=== PATIENT | female | born 1945 | race Caucasian/White ===

== ENCOUNTER 2018-02-05 13:14 | Emergency (ER) | payer MEDICARE ==
[2018-02-05 15:03] LABS: #Basophils 0.1 thou/uL (0.0-0.2); #Eosinphils 0.3 thou/uL (0.0-0.7); #Lymphocytes 1.7 thou/uL (1.20-3.40); #Monocytes 0.6 thou/uL (0.11-0.59); #Neutrophils 4.8 thou/uL (1.40-6.50); %Basophils 0.7 % (0.0-1.0); %Eosinophils 3.6 % (0.0-10.0); %Monocytes 8.5 % (0.0-10.0); %Neutrophils 64.2 % (42.0-75.0); Hemoglobin 13.3 g/dL (12.0-16.0); Mean Corpuscular HGB CONC 34.1 g/dL (32.0-36.0); Mean Corpuscular Hemoglobin 30.7 pg (27.0-31.0); Mean Platelet Volume 7.3 fL (7.4-10.4); Platelet Count 285 thou/uL (130-400); RBC Distribution Width 11.2 % (11.5-14.5); Red Blood Cell (RBC) Count 4.34 mill/uL (4.20-5.40); White Blood Cell (WBC) Count 7.4 thou/uL (4.8-10.8)
[2018-02-05 15:31] LABS: ALT (SGPT) 9 U/L (8-55); AST (SGOT) 10 U/L (5-34); Alkaline Phosphatase 82 U/L (40-150); Anion Gap 14 mmol/L (10-20); BUN (Urea Nitrogen) 9 mg/dL (9.8-20.1); Bilirubin, Total 0.3 mg/dL (0.2-1.2); Calc. Creatinine Clearance 0 mL/min (70-130); Calcium 9.5 mg/dL (7.8-10.44); Carbon Dioxide 23 mmol/L (23-31); Chloride 103 mmol/L (98-107); Estimated GFR-MDRD 69; Globulin 3.1 g/dL (2.4-3.5); Glucose 92 mg/dL (83-110); Lipase 17 U/L (8-78); Protein, Total 7.1 g/dL (6.0-8.3); Sodium 136 mmol/L (136-145)
[2018-02-05 15:38] LABS: Bilirubin Negative (Negative); Blood, Urine Negative (Negative); Clarity CLEAR (Clear); Glucose, Urine (Dipstick) Negative (Negative); Leukocyte Large (Negative); Nitrite Negative (Negative); Protein, Urine (Dipstick) Negative (Neg-Trace); Specific Gravity, Urine 1.017 (1.002-1.036); Urobilinogen 0.2 mg/dL (0.2-1.0)
[2018-02-05 15:40] LABS: Bacteria/HPF None Seen HPF (None Seen); Hyaline Casts/LPF 0-3 HYALINE CAST LPF (0-3 Hyaline); Pathc Cast-AUWi Flag 0.43 (0-2.49); RBC/HPF 0-3 HPF (0-3); WBC/HPF 21-50 HPF (0-3)
[2018-02-05] MEDS ORDERED: Morphine 4 MG/ML VIAL ONE (16:18)
--- NOTE | 2018-02-05 16:33 | CT ---
CT ABDOMEN AND PELVIS WITH IV CONTRAST: History: Abdominal pain. Comparison: 10-07-16 FINDINGS: The lung bases are clear. Calcified granulomata within the spleen are consistent with healed granulom atous disease. Prominent arterial calcification with fusiform ectasia of the lower abdominal aorta th at is similar in appearance to the previous exam. 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 Numerous diverticula arise from the colon without adjacent inflammation on today's exam. No free flui d. Nonspecific lymph nodes scattered throughout the abdomen and pelvis. Left hip prosthesis obscures detail. IMPRESSION: 1. Diverticulosis. No evidence of inflammation on today's CT. 2. Atherosclerosis. Chronic type findings are stable. POS: [facility]
== END 2018-02-05 17:20 | disposition home or self-care (01) ==
LOC: ERS 13:14
DX: K57.92 Diverticulitis of intestine, part unspecified, without perforation or abscess without bleeding (principal); E78.5 Hyperlipidemia, unspecified; F41.9 Anxiety disorder, unspecified; F17.210 Nicotine dependence, cigarettes, uncomplicated; Z79.899 Other long term (current) drug therapy
CPT/HCPCS: 36415; 74177; 80053; 81003; 81015; 83690; 85025; 96361; 96374; J2270

== ENCOUNTER 2018-05-24 19:24 | Observation (INO) | payer MEDICARE ==
[2018-05-24 19:48] LABS: #Basophils 0.1 thou/uL (0.0-0.2); #Eosinphils 0.4 thou/uL (0.0-0.7); #Lymphocytes 2.5 thou/uL (1.20-3.40); #Monocytes 0.8 thou/uL (0.11-0.59); #Neutrophils 6.5 thou/uL (1.40-6.50); %Basophils 0.7 % (0.0-1.0); %Eosinophils 3.6 % (0.0-10.0); %Lymphocytes 24.6 % (21.0-51.0); %Monocytes 7.6 % (0.0-10.0); %Neutrophils 63.5 % (42.0-75.0); Hemoglobin 15.5 g/dL (12.0-16.0); Mean Corpuscular HGB CONC 35.4 g/dL (32.0-36.0); Mean Corpuscular Hemoglobin 31.7 pg (27.0-31.0); Mean Corpuscular Volume 89.7 fL (78.0-98.0); Mean Platelet Volume 7.4 fL (7.4-10.4); Platelet Count 359 thou/uL (130-400); RBC Distribution Width 11.4 % (11.5-14.5); Red Blood Cell (RBC) Count 4.89 mill/uL (4.20-5.40); White Blood Cell (WBC) Count 10.2 thou/uL (4.8-10.8)
[2018-05-24 19:55] LABS: INR-International Normal Ratio 0.9; Prothrombin Time 11.7 SEC (12.0-14.7)
--- NOTE | 2018-05-24 19:58 | CT ---
FCT head without contrast: Multiple axial tomograms obtained through the head without IV enhancement. INDICATIONS: Stroke protocol. Right arm numbness. COMPARISON: 07/09/2016 FINDINGS: Ventricles have normal size and position. No evidence of intracranial mass, hemorrhage, edema, or infarct. Visualized sinuses and mastoids appear clear. Bony calvarium appears unremarkable. IMPRESSION: No acute finding Findings relayed to ER physician at 7:55 PM
[2018-05-24 20:00] LABS: ALT (SGPT) 8 U/L (8-55); AST (SGOT) 14 U/L (5-34); Albumin 4.7 g/dL (3.4-4.8); Alkaline Phosphatase 98 U/L (40-150); Anion Gap 16 mmol/L (10-20); BUN (Urea Nitrogen) 14 mg/dL (9.8-20.1); Bilirubin, Total 0.2 mg/dL (0.2-1.2); CK (CPK) 53 U/L (29-168); Calc. Creatinine Clearance 0 mL/min (70-130); Carbon Dioxide 28 mmol/L (23-31); Chloride 100 mmol/L (98-107); Estimated GFR-MDRD 49; Globulin 3.7 g/dL (2.4-3.5); Glucose 98 mg/dL (83-110); Potassium 3.9 mmol/L (3.5-5.1); Protein, Total 8.4 g/dL (6.0-8.3); Sodium 140 mmol/L (136-145)
[2018-05-24] MEDS ORDERED: Acetaminophen 325 MG TAB PO PRN (21:54)
[2018-05-24] MEDS ORDERED: HYDROcodone/Acetaminophen 5/325 mg Tablet PO PRN (21:54)
[2018-05-24] MEDS ORDERED: Senokot S 8.6-50 MG TAB PO PRN (21:54)
[2018-05-24 22:24] VITALS: BMI 28.3
[2018-05-24] MEDS ORDERED: Amitriptyline HCl 25 MG TAB PO PRN (22:37)
[2018-05-24 23:04] LABS: Troponin I Less than 0.010 ng/mL (< 0.028)
[2018-05-24 23:56] LABS: Bilirubin Negative (Negative); Blood, Urine Negative (Negative); Clarity CLEAR (Clear); Glucose, Urine (Dipstick) Negative (Negative); Leukocyte Moderate (Negative); Nitrite Negative (Negative); Protein, Urine (Dipstick) Negative (Neg-Trace); Specific Gravity, Urine 1.017 (1.002-1.036); Urobilinogen 0.2 mg/dL (0.2-1.0); pH, Urine 6.5 (5.0-9.0)
[2018-05-24 23:58] LABS: Bacteria/HPF None Seen HPF (None Seen); Hyaline Casts/LPF 4-6 HYALINE CAST LPF (0-3 Hyaline); RBC/HPF 0-3 HPF (0-3); Squamous Epithelial 0-3 HPF (0-3); WBC/HPF 21-50 HPF (0-3)
[2018-05-25 00:03] LABS: Amphetamine Not Detected (NotDetected); Barbiturates Screen Not Detected (NotDetected); Benzodiazepine Screen Detected (NotDetected); Cocaine Metabolite Screen Not Detected (NotDetected); Medtox Control Line Valid? VALID (VALID); Medtox Reader # READER 1; Methadone Not Detected (NotDetected); Methamphetamine Not Detected (NotDetected); Opiate Screen Not Detected (NotDetected); Oxycodone Screen Not Detected (NotDetected); Phencyclidine (PCP) Not Detected (NotDetected); THC/Cannabinoid Screen Not Detected (NotDetected); Tricyclic Screen Detected (NotDetected)
[2018-05-25 02:11] LABS: Troponin I Less than 0.010 ng/mL (< 0.028)
[2018-05-25 05:12] LABS: #Basophils 0.1 thou/uL (0.0-0.2); #Eosinphils 0.4 thou/uL (0.0-0.7); #Lymphocytes 2.7 thou/uL (1.20-3.40); #Monocytes 0.7 thou/uL (0.11-0.59); #Neutrophils 4.4 thou/uL (1.40-6.50); %Basophils 0.7 % (0.0-1.0); %Eosinophils 5.1 % (0.0-10.0); %Lymphocytes 32.4 % (21.0-51.0); %Monocytes 8.1 % (0.0-10.0); %Neutrophils 53.7 % (42.0-75.0); Hemoglobin 13.2 g/dL (12.0-16.0); Mean Corpuscular HGB CONC 34.3 g/dL (32.0-36.0); Mean Corpuscular Hemoglobin 30.9 pg (27.0-31.0); Mean Corpuscular Volume 90.1 fL (78.0-98.0); Mean Platelet Volume 7.3 fL (7.4-10.4); Platelet Count 272 thou/uL (130-400); RBC Distribution Width 11.5 % (11.5-14.5); Red Blood Cell (RBC) Count 4.26 mill/uL (4.20-5.40); White Blood Cell (WBC) Count 8.2 thou/uL (4.8-10.8)
[2018-05-25 05:29] LABS: ALT (SGPT) 8 U/L (8-55); AST (SGOT) 9 U/L (5-34); Alkaline Phosphatase 72 U/L (40-150); Anion Gap 12 mmol/L (10-20); BUN (Urea Nitrogen) 12 mg/dL (9.8-20.1); Bilirubin, Total 0.3 mg/dL (0.2-1.2); Calc. Creatinine Clearance 71 mL/min (70-130); Calcium 9.4 mg/dL (7.8-10.44); Carbon Dioxide 26 mmol/L (23-31); Cardiac Risk 4.8 (Less than 4.5); Chloride 104 mmol/L (98-107); Cholesterol 213 mg/dl (< 200 Desired); Estimated GFR-MDRD 67; Globulin 2.6 g/dL (2.4-3.5); Glucose 97 mg/dL (83-110); HDL Cholesterol 44 mg/dL (>60 Neg Risk); LDL Cholesterol, Calculated 92 mg/dL; Potassium 3.9 mmol/L (3.5-5.1); Protein, Total 6.6 g/dL (6.0-8.3); Sodium 138 mmol/L (136-145); Triglycerides 387 mg/dL (Less than 150)
--- NOTE | 2018-05-25 07:03 | HP ---
PRIMARY CARE PHYSICIAN: Dr. Alvarez. CHIEF COMPLAINT: Expressive dysphasia. HISTORY OF PRESENT ILLNESS: Ms. Sexton is a 72-year-old female who came to the emergency room today for evaluation of 30-minute episode of inability to speak. Reports right-sided weakness and numbness in her right arm. Symptoms have mostly resolved at this point. Does report a similar episode on of last week, which lasted about 15 minutes and resolved. The patient reports that speech dysarthria has resolved. Has 4/5 strength, right arm, right leg. Denied any trouble swallowing. Past medical history is pertinent for hyperlipidemia and is a cigarette smoker. Reports smokes about a pack a day and has for the last [address] of the brain was obtained while in the emergency room and has no acute findings. The patient does also have a history of stable of the right carotid terminus, first noticed in 2014, and follows with Neurosurgery periodically. Based on history and symptoms, the patient will be admitted to the stroke unit for further management. PAST MEDICAL HISTORY: History of diverticulosis, diverticulitis, hypertension, dyslipidemia, history of bacterial meningitis. PAST SURGICAL HISTORY: Bilateral lumpectomy, appendectomy, hysterectomy, and left hip replacement. PSYCHIATRIC HISTORY: Anxiety and depression. SOCIAL HISTORY: The patient lives at home. Smokes one pack per day and has since the age of 24. . Denies history of any illicit drug use. Does drink alcohol socially. FAMILY HISTORY: No family history of any premature coronary artery disease, stroke, or cancer. ALLERGIES: HOME MEDICATIONS: 1. Simvastatin 1 tablet p.o. 40 mg. 2. Paroxetine 40 mg p.o. at bedtime. 3. Lorazepam 1 mg p.o. daily. 4. Elavil 25 mg p.o. at bedtime as needed. REVIEW OF SYSTEMS: The patient does report an episode of about 30 minutes where she had trouble speaking, had some right-sided weakness and numbness. Denied any trouble swallowing. The patient and report that speech is back to normal. Does report some dizziness, focal weakness to the right side. Denies any abdominal pain, nausea, vomiting, diarrhea, fever, chills. All other systems reviewed and are negative unless mentioned in the HPI. PHYSICAL EXAMINATION: VITAL SIGNS: Blood pressure 142/81, pulse is 88, respirations 15, pulse ox is 96% on room air, temperature is 98.7. CONSTITUTIONAL: The patient is nontoxic appearing, is alert and oriented to person, place, and time. HEENT: Normocephalic, atraumatic. Eyes: Eyelids are normal to inspection. Pupils equally round and reactive to light. ENT: Mouth exam is normal. Trachea is midline. RESPIRATORY/CHEST: Breath sounds are clear. CARDIOVASCULAR: Regular rate and rhythm. Heart sounds are normal. ABDOMEN: Nontender. Bowel sounds are heard. EXTREMITIES: Upper extremity range of motion is normal. Motor strength is 5/5 on the left, 4/5 on the right. Sensation is decreased to right arm. Lower extremity range of motion is normal, 5/5 on the left, 4/5 on the right. Sensation is decreased. Pedal pulses are equal bilaterally. NEUROLOGIC: The patient is alert and oriented to person, place, and time. Speech is normal. Pronator drift on the right. Weakness to the right arm. Decreased sensation on the right arm. Weakness 4/5 motor strength on the right leg. SKIN: Warm, dry, normal in color. PSYCH: The patient has a normal affect. DIAGNOSTIC STUDIES: EKG in the ER shows beats per minute 89 with a normal sinus rhythm. ST segments and T waves are normal. [place] is normal. PERTINENT LABORATORY DATA: White blood cell count is 10.2, hemoglobin is 15.5, hematocrit is 43.9, platelet count is 359. Coags: PT is 11.7, INR is 0.9, APTT 25. Sodium 140, potassium 3.9, chloride 100, gap is 16, BUN is 14, creatinine is 1.10, estimated GFR is 49, glucose is 98, calcium is 10. Troponin x2 are undetectable. Liver enzymes are unremarkable. Urine is positive for leukocyte esterase, white blood cell count 21-50, hyaline casts 46. Urine cultures have been ordered. Toxicology, tricyclic and benzodiazepine. ASSESSMENT AND PLAN: 1. Right-sided weakness. CT scan of the head with no acute findings. We will obtain an MRI of the brain without contrast, echocardiogram. A CTA of the head and neck will be ordered. Aspirin has been given in the ER. We will continue that daily. Lipids will be checked in the a.m. Stroke team to evaluate including PT, OT, and speech. 2. Hyperlipidemia. We will check lipids in the morning. Restart home medication. 3. Anxiety and depression. We will continue home medications. 4. Deep vein thrombosis and gastrointestinal prophylaxis will be started. 5. Hospital course based on clinical findings. Job ID: [id number]
[2018-05-25] MEDS ORDERED: Lorazepam 1 MG TAB PO SCH ×2 (09:00→21:00)
[2018-05-25] MEDS: Enoxaparin Sodium 40 MG/0.4 ML SYRINGE SC SCH (09:26)
[2018-05-25] MEDS: Famotidine 20 MG TAB PO SCH ×2 (09:26→20:17)
--- NOTE | 2018-05-25 11:39 | CT ---
CTA NECK CTA HEAD: CTA HEAD WITH AND WITHOUT CONTRAST: Multiple axial tomograms were obtained through the head without IV enhancement. This was followed by CTA angio of head with multiplanar reconstruction and 3d post processing. INDICATION: Bilateral vision loss. Confusion, aphasia. COMPARISON: Comparison is made to a CTA head dated 07/09/2016. That exam described dolichoectasia of the right ca rotid terminus. FINDINGS: The intracranial internal carotid arteries are patent. 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 Mild ectasia of the left carotid terminus is also stable in appearance. The middle cerebral arteries appear patent and symmetric. M1, M2, and M3 branches appear symmetric. The anterior cerebral arteries are patent. The carotid tip is bulbous and somewhat nodular in appearance. This is a stable finding from the janet or study. 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 The posterior cerebrals appear to h ave a common origin, but this is also a stable finding. There is evidence of a small focus of stenosis in the left P1 segment which appears stable. IMPRESSION: 1. Stable CT angio of cerebral circulation. 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 There is mild ectasia of the left carotid terminus which is stable. 2. Basilar tip is bulbous and nodular but stable from prior exam. 3. Focal stenosis in the P1 segment of the left posterior cerebral artery is seen and this is a stab le finding. CT HEAD WITHOUT CONTRAST: Multiple axial tomograms obtained through the head without IV enhancement prior to the cerebral angio study. FINDINGS: Ventricles have normal size and position. There is no evidence of intracranial mass, hemorrhage, or infarct. IMPRESSION: No acute finding. CTA NECK: Multiple axial tomograms are obtained through the neck with angio protocol. Multiplanar reconstructi on and 3D post processing. INDICATION: Sudden vision loss. FINDINGS: No stenosis seen at the origin of the arch vessels. Common carotid arteries are patent and symmetric. There are mild atherosclerotic changes are seen in both carotid bulbs and proximal ICAs with calcific ation and mild soft plaque. No evidence of internal carotid artery stenosis identified on either ana e. Vertebral arteries are patent. Mildly dominant right vertebral again noted. No soft tissue abnormality. IMPRESSION: Mild atherosclerotic changes seen at both carotid bulbs and proximal internal carotid arteries. No s ignificant stenosis identified. POS: [facility]
--- NOTE | 2018-05-25 13:20 | MRI ---
MRI BRAIN WITHOUT CONTRAST: HISTORY: TIA. FINDINGS: Correlation is made with the previous day's CT scan. No restricted diffusion is seen. No evidence of infarct, hemorrhage, midline shift, or abnormal extr aaxial fluid collections noted. The ventricular size is appropriate and the basilar cisterns patent. Foci of T2 prolongation of the periventricular white matter consistent with mild chronic small-vess el ischemic disease. There is minimal mucosal disease in the paranasal sinuses. IMPRESSION: No evidence of acute intracranial process. POS: [facility]
--- NOTE | 2018-05-25 15:48 | PDOC.PN ---
- Subjective Encounter Start Date: 05/25/18 Encounter Start Time: 15:31 Patient lying in bed with at bedside. She reports returning to baseline. She denies chest pain, shortness of breath, abdominal pain. She reports some mild headache, but denies any weakness, numbness or tingling. MRI showing no acute findings, CTA showing aneurysm stable from 2017. UA showing signs of possible UTI, she did notice some urine odor and suprapubic pain. - Objective Resuscitation Status - Order Detail: 05/24/18 21:54 Resuscitation Status Routine Co-Sign Provider: Resuscitation Status: DNAR: NO Resuscitation Discussed with: Patient Additional comments: Neo is surrogate decision maker [phone] MAR Reviewed: Yes Vital Signs & Weight: Vital Signs (12 hours) Temp Pulse Pulse Pulse Resp BP BP 05/25/18 11:48 97.9 F 88 16 05/25/18 09:55 80 81 136/81 165/75 H 05/25/18 07:44 98.4 F 76 17 05/25/18 04:00 97.8 F 79 16 BP Pulse Ox 05/25/18 11:48 144/84 H 95 05/25/18 09:55 05/25/18 07:44 127/79 94 L 05/25/18 04:00 134/74 92 L Weight Weight 165 lb 1.6 oz I&O: 05/24/18 05/25/18 05/26/18 06:59 06:59 06:59 Intake Total 240 Output Total 240 Balance 0 Result Diagrams: 05/25/18 04:43 05/25/18 04:43 Additional Labs: Accuchecks 05/24/18 19:37 POC Glucose 90 Radiology Reviewed by me: Yes Phys Exam - Physical Examination Constitutional: NAD HEENT: moist MMs Neck: supple Respiratory: no wheezing, no rales Cardiovascular: RRR, no significant murmur Gastrointestinal: soft, no distention, positive bowel sounds Musculoskeletal: no edema, pulses present Neurological: non-focal, moves all 4 limbs Lymphatic: no nodes Psychiatric: normal affect, A&O x 3 Skin: no rash, cap refill <2 seconds Dx/Plan (1) TIA (transient ischemic attack) Status: Acute (2) UTI (urinary tract infection) Status: Acute Qualifiers: Urinary tract infection type: acute cystitis Hematuria presence: without hematuria Qualified Code(s): N30.00 - Acute cystitis without hematuria (3) Anxiety and depression Code(s): F41.8 - OTHER SPECIFIED ANXIETY DISORDERS Status: Chronic - Plan cont current plan of care, plan discussed w/ family, continue antibiotics * Workup so far unremarkable * CTA showing aneurysm stable * UA showing signs of UTI, check urine culture and start ceftriaxone * Await echo * Continue aspirin 81mg daily and home statin * Continue other home medications
[2018-05-25] MEDS ORDERED: cefTRIAXone\\ROCEPHIN 1 GM in Sodium Chloride 0.9% 100 ML IVPB SCH (16:00)
[2018-05-25] MEDS ORDERED: PARoxetine 20 MG TAB PO SCH (21:00)
[2018-05-25] MEDS ORDERED: Simvastatin 40 MG TAB PO SCH (21:00)
[2018-05-26 05:46] LABS: #Eosinphils 0.3 thou/uL (0.0-0.7); #Monocytes 0.6 thou/uL (0.11-0.59); %Basophils 0.5 % (0.0-1.0); %Eosinophils 4.4 % (0.0-10.0); %Lymphocytes 28.2 % (21.0-51.0); %Neutrophils 57.9 % (42.0-75.0); Hemoglobin 13.5 g/dL (12.0-16.0); Mean Corpuscular Hemoglobin 30.2 pg (27.0-31.0); Mean Corpuscular Volume 88.9 fL (78.0-98.0); Mean Platelet Volume 7.4 fL (7.4-10.4); Platelet Count 271 thou/uL (130-400); RBC Distribution Width 11.2 % (11.5-14.5); Red Blood Cell (RBC) Count 4.45 mill/uL (4.20-5.40); White Blood Cell (WBC) Count 6.9 thou/uL (4.8-10.8)
[2018-05-26 06:07] LABS: ALT (SGPT) 9 U/L (8-55); AST (SGOT) 11 U/L (5-34); Albumin 4.1 g/dL (3.4-4.8); Alkaline Phosphatase 69 U/L (40-150); Anion Gap 13 mmol/L (10-20); BUN (Urea Nitrogen) 14 mg/dL (9.8-20.1); Bilirubin, Total 0.4 mg/dL (0.2-1.2); Calc. Creatinine Clearance 67 mL/min (70-130); Calcium 9.5 mg/dL (7.8-10.44); Carbon Dioxide 26 mmol/L (23-31); Chloride 102 mmol/L (98-107); Estimated GFR-MDRD 62; Globulin 2.8 g/dL (2.4-3.5); Glucose 94 mg/dL (83-110); Potassium 3.9 mmol/L (3.5-5.1); Protein, Total 6.9 g/dL (6.0-8.3); Sodium 137 mmol/L (136-145)
[2018-05-26 08:01] VITALS: BP 150/73; TEMP 97.9
[2018-05-26] MEDS: Famotidine 20 MG TAB PO SCH (08:26)
[2018-05-26] MEDS: Enoxaparin Sodium 40 MG/0.4 ML SYRINGE SC SCH (08:26)
[2018-05-26] MEDS ORDERED: Aspirin 81 mg Enteric Coated Tablet PO SCH (09:00)
== END 2018-05-26 11:24 | disposition home or self-care (01) ==
LOC: ERS 19:24 → 2SE 20:32
PROVIDERS: ADMIT Internal Medicine; ATTEND Internal Medicine
DX: G45.9 Transient cerebral ischemic attack, unspecified (principal); E78.5 Hyperlipidemia, unspecified; F17.210 Nicotine dependence, cigarettes, uncomplicated; I10 Essential (primary) hypertension; N30.00 Acute cystitis without hematuria; F41.8 Other specified anxiety disorders; I72.0 Aneurysm of carotid artery; Z79.899 Other long term (current) drug therapy; Z88.1 Allergy status to other antibiotic agents; Z66 Do not resuscitate
CPT/HCPCS: 70450; 70496; 70498; 70551; 80053 ×2; 80061; 80306; 81001; 82550; 82962; 84484 ×3; 85025 ×2; 85610; 85730; 87086; 93005; 93306; 96365; 96372 ×2; 97139 ×4; 99291; G0378 ×2; 36415; 36416; 84443; J0696; J1650; J7050

== ENCOUNTER 2019-02-17 16:10 | Emergency (ER) | payer MEDICARE ==
[2019-02-17 16:41] LABS: #Eosinphils 0.3 thou/uL (0.0-0.7); #Lymphocytes 3.4 thou/uL (1.20-3.40); #Monocytes 0.8 thou/uL (0.11-0.59); #Neutrophils 6.2 thou/uL (1.40-6.50); %Basophils 0.4 % (0.0-1.0); %Eosinophils 2.8 % (0.0-10.0); %Lymphocytes 31.5 % (21.0-51.0); %Neutrophils 58.3 % (42.0-75.0); Hemoglobin 14.3 g/dL (12.0-16.0); Mean Corpuscular HGB CONC 35.2 g/dL (32.0-36.0); Mean Corpuscular Hemoglobin 31.3 pg (27.0-31.0); Mean Corpuscular Volume 88.9 fL (78.0-98.0); Mean Platelet Volume 7.2 fL (7.4-10.4); Platelet Count 318 thou/uL (130-400); RBC Distribution Width 11.4 % (11.5-14.5); Red Blood Cell (RBC) Count 4.57 mill/uL (4.20-5.40); White Blood Cell (WBC) Count 10.7 thou/uL (4.8-10.8)
--- NOTE | 2019-02-17 16:55 | RAD ---
EXAM: Two views chest PROVIDED CLINICAL HISTORY: Dyspnea. Difficulty breathing with diaphoresis. COMPARISON: 07/26/2014. FINDINGS: Cardiac silhouette and pulmonary vasculature are within normal limits. Small calcified granuloma ove rlies the left upper lung zone. The lungs are otherwise clear. Mild degenerative change seen in the spine. Vascular calcifications are again noted in the thoracic aorta. Chest is stable when compared t o prior study. IMPRESSION: No acute cardiopulmonary process.
[2019-02-17 17:02] LABS: ALT (SGPT) 9 U/L (8-55); AST (SGOT) 10 U/L (5-34); Albumin 4.4 g/dL (3.4-4.8); Alkaline Phosphatase 86 U/L (40-110); Anion Gap 17 mmol/L (10-20); BUN (Urea Nitrogen) 10 mg/dL (9.8-20.1); Bilirubin, Total 0.3 mg/dL (0.2-1.2); Calc. Creatinine Clearance 0 mL/min (70-130); Carbon Dioxide 24 mmol/L (23-31); Chloride 101 mmol/L (98-107); Estimated GFR-MDRD 55; Globulin 3.2 g/dL (2.4-3.5); Glucose 89 mg/dL (83-110); Potassium 3.8 mmol/L (3.5-5.1); Protein, Total 7.6 g/dL (6.0-8.3); Sodium 138 mmol/L (136-145)
== END 2019-02-17 18:20 | disposition home or self-care (01) ==
LOC: ERS 16:10
DX: R06.00 Dyspnea, unspecified (principal); E78.5 Hyperlipidemia, unspecified; F41.9 Anxiety disorder, unspecified; J44.9 Chronic obstructive pulmonary disease, unspecified; F17.210 Nicotine dependence, cigarettes, uncomplicated; Z79.82 Long term (current) use of aspirin; Z79.899 Other long term (current) drug therapy
CPT/HCPCS: 71046; 80053; 83880; 84484; 85025; 85379; 87804; 93005; 94640; J7620

== ENCOUNTER 2020-05-04 12:45 | Outpatient (CLI) | payer MEDICARE ==
[2020-05-04 23:37] LABS: SARS-CoV-2 PCR by NAA Not Detected (NotDetected)
== END 2020-05-04 12:46 | disposition home or self-care (01) ==
LOC: LABBT 12:45
PROVIDERS: ATTEND Internal Medicine Gastroenterology
DX: Z01.812 Encounter for preprocedural laboratory examination (principal); K92.2 Gastrointestinal hemorrhage, unspecified; Z20.822 Contact with and (suspected) exposure to COVID-19
CPT/HCPCS: U0003; U0005; 87635

== ENCOUNTER 2020-05-09 08:28 | Day surgery (SDC) | payer MEDICARE ==
[2020-05-08 11:44] VITALS: BMI 27.4
[2020-05-09] MEDS ORDERED: Lidocaine 1% PF 5 ML VIAL ONE (10:53)
[2020-05-09] MEDS ORDERED: PROPOFOL 200 MG/20 ML VIAL ONE (10:53)
== END 2020-05-09 11:44 | disposition home or self-care (01) ==
LOC: SDC 08:28
PROVIDERS: ATTEND Internal Medicine Gastroenterology
PROC: 0DJD8ZZ Inspection of Lower Intestinal Tract, Via Natural or Artificial Opening Endoscopic (ICD-10-PCS; principal; 2020-05-09)
DX: K57.30 Diverticulosis of large intestine without perforation or abscess without bleeding (principal); K64.4 Residual hemorrhoidal skin tags; E78.5 Hyperlipidemia, unspecified; F41.9 Anxiety disorder, unspecified; M19.90 Unspecified osteoarthritis, unspecified site; Z86.010 Personal history of colon polyps; Z86.73 Personal history of transient ischemic attack (TIA), and cerebral infarction without residual deficits; Z87.891 Personal history of nicotine dependence; Z79.82 Long term (current) use of aspirin; Z79.899 Other long term (current) drug therapy; Z88.1 Allergy status to other antibiotic agents
CPT/HCPCS: J2704

== ENCOUNTER 2020-11-09 15:21 | Outpatient (CLI) | payer MEDICARE | END 2020-11-09 15:22 | disposition home or self-care (01) | LOC: BICMAMMO 15:21 | PROVIDERS: ATTEND Internal Medicine | DX: Z12.31 Encounter for screening mammogram for malignant neoplasm of breast (principal); Z91.89 Other specified personal risk factors, not elsewhere classified | CPT/HCPCS: 77063; 77067 ==

== ENCOUNTER 2023-09-05 19:23 | Inpatient (IN) | payer MEDICARE ==
[~2023-09-05 19:23] MED LIST: Iopamidol-370 76% 500 ML MDV (1 ML CHARGE) ONE
[2023-09-05] MEDS ORDERED: Ondansetron PF 4 MG/2 ML Vial ONE (19:57)
[2023-09-05] MEDS ORDERED: Morphine 4 MG/ML VIAL ONE (19:57)
[2023-09-05 20:18] LABS: Bacteria/HPF None Seen HPF (None Seen); Bilirubin Negative (Negative); Blood, Urine Negative (Negative); CAUTI Indications for Culture Pelvic or flank pain; Clarity Clear (Clear); Glucose, Urine (Dipstick) Normal (Negative); Ketone, Urine Negative (Negative); Leukocyte 500 Leu/uL (Negative); Nitrite Negative (Negative); Protein, Urine (Dipstick) Negative (Neg-Trace); RBC/HPF 0-3 HPF (0-3); Specific Gravity, Urine 1.011 (1.002-1.036); Squamous Epithelial 0-3 HPF (0-3); Urobilinogen Normal mg/dL (Less than 2); WBC/HPF 21-50 HPF (0-3)
[2023-09-05 20:20] LABS: Urine Culture Reflex Yes Yes
[2023-09-05 20:22] LABS: #Basophils 0.05 10x3/uL (0.0-0.2); %Basophils 0.5 % (0.0-1.0); %Eosinophils 4.2 % (0.0-10.0); %Neutrophils 68.1 % (42.0-75.0); Hematocrit 40.5 % (36.0-47.0); Hemoglobin 13.7 g/dL (12.0-16.0); Mean Corpuscular HGB CONC 33.8 g/dL (32.0-36.0); Mean Corpuscular Hemoglobin 30.9 pg (27.0-31.0); Mean Corpuscular Volume 91.2 fL (78.0-98.0); Mean Platelet Volume 9.5 fL (7.4-10.4); Platelet Count 285 10x3/uL (130-400); Red Blood Cell (RBC) Count 4.44 mill/uL (4.20-5.40)
[2023-09-05 20:46] LABS: ALT (SGPT) 91 U/L (8-55); AST (SGOT) 138 U/L (5-34); Alkaline Phosphatase 114 U/L (40-110); Anion Gap 14 mmol/L (10-20); BUN (Urea Nitrogen) 14 mg/dL (9.8-20.1); Bilirubin, Total 0.8 mg/dL (0.2-1.2); Calc. Creatinine Clearance 0 mL/min (70-130); Calcium 9.7 mg/dL (7.8-10.44); Carbon Dioxide 23 mmol/L (23-31); Chloride 105 mmol/L (98-107); Estimated GFR 62; Globulin 3.2 g/dL (2.4-3.5); Glucose 104 mg/dL (83-110); Lipase 22 U/L (8-78); Potassium 3.9 mmol/L (3.5-5.1); Protein, Total 7.2 g/dL (5.8-8.1); Sodium 138 mmol/L (136-145)
[2023-09-05 20:50] LABS: Troponin I Less than 0.010 ng/mL (< 0.028)
[2023-09-05] MEDS ORDERED: Ondansetron ODT 4 MG TAB SL PRN (23:15)
[2023-09-06 01:22] VITALS: BMI 27.0
[2023-09-06] MEDS: Sodium Chloride 0.9% 1,000 ML IV SCH (01:34)
[2023-09-06] MEDS: Ondansetron PF 4 MG/2 ML Vial IVP PRN (01:34)
[2023-09-06] MEDS ORDERED: Non-Formulary Item 1 EACH (Melatonin [Melatonin] 10 MG Tablet) PO PRN (08:47)
[2023-09-06] MEDS ORDERED: cefTRIAXone\\ROCEPHIN 500 MG in Sodium Chloride 0.9% 0 ML IVPB SCH (09:00)
[2023-09-06] MEDS: Memantine 10 MG TAB PO SCH (09:35)
[2023-09-06] MEDS: cefTRIAXone\\ROCEPHIN 1 GM in Sodium Chloride 0.9% 100 ML IVPB SCH (09:35)
[2023-09-06] MEDS ORDERED: cefTRIAXone\\ROCEPHIN 1 GM in Sodium Chloride 0.9% 100 ML IVPB SCH (10:00)
[2023-09-06] MEDS ORDERED: Iopamidol 45 ML ONE (12:33)
[2023-09-06] MEDS ORDERED: Indomethacin 50 MG SUPP ONE (12:34)
[2023-09-06] MEDS ORDERED: PROPOFOL 20 ML ONE (12:41)
[2023-09-06] MEDS ORDERED: Dexamethasone 4 mg/ml Vial ONE (12:41)
[2023-09-06] MEDS ORDERED: fentaNYL 50 mcg/mL 1 mL Vial ONE (12:41)
[2023-09-06] MEDS ORDERED: Ondansetron PF 4 MG/2 ML Vial ONE (12:41)
[2023-09-06] MEDS ORDERED: Lidocaine 1% PF 5 ML VIAL ONE (12:41)
[2023-09-06] MEDS ORDERED: Rocuronium Bromide 10 MG/ML (10ML VIAL) ONE (12:42)
[2023-09-06] MEDS ORDERED: Phenylephrine 10 MG/ML VIAL ONE (12:50)
[2023-09-06] MEDS ORDERED: SUGAMMADEX SODIUM 200 MG/2 ML VIAL ONE (13:28)
[2023-09-06] MEDS: traMADol HCl 50 MG TAB PO PRN (17:39)
[2023-09-06] MEDS: Acetaminophen 325 MG TAB PO PRN (17:54)
[2023-09-06] MEDS: Atorvastatin Calcium 20 MG TAB PO SCH (19:56)
[2023-09-06] MEDS: Lorazepam 1 MG TAB PO SCH (19:56)
[2023-09-06] MEDS: Morphine 2 MG/ML VIAL SLOW IVP SCH (19:56)
[2023-09-06] MEDS: PARoxetine 20 MG TAB PO SCH (19:57)
[2023-09-06] MEDS ORDERED: Simvastatin 40 MG TAB PO SCH (21:00)
[2023-09-06] MEDS ORDERED: Non-Formulary Item 1 EACH (Paroxetine Hcl [Paroxetine Hcl] 40 MG Tablet) PO SCH (21:00)
[2023-09-07 05:46] LABS: #Basophils Less than 0.03 10x3/uL (0.0-0.2); #Eosinphils Less than 0.03 10x3/uL (0.0-0.7); %Basophils 0.1 % (0.0-1.0); %Lymphocytes 6.1 % (21.0-51.0); %Neutrophils 88.5 % (42.0-75.0); Hematocrit 36.2 % (36.0-47.0); Hemoglobin 12.2 g/dL (12.0-16.0); Mean Corpuscular HGB CONC 33.7 g/dL (32.0-36.0); Mean Corpuscular Hemoglobin 31.1 pg (27.0-31.0); Mean Corpuscular Volume 92.3 fL (78.0-98.0); Mean Platelet Volume 9.9 fL (7.4-10.4); Platelet Count 237 10x3/uL (130-400); Red Blood Cell (RBC) Count 3.92 mill/uL (4.20-5.40)
[2023-09-07 06:44] LABS: ALT (SGPT) 586 U/L (8-55); AST (SGOT) 415 U/L (5-34); Albumin 3.4 g/dL (3.4-4.8); Alkaline Phosphatase 186 U/L (40-110); Anion Gap 10 mmol/L (10-20); BUN (Urea Nitrogen) 12 mg/dL (9.8-20.1); Bilirubin, Total 4.3 mg/dL (0.2-1.2); Calc. Creatinine Clearance 71 mL/min (70-130); Calcium 9.5 mg/dL (7.8-10.44); Carbon Dioxide 25 mmol/L (23-31); Chloride 102 mmol/L (98-107); Estimated GFR 80; Globulin 2.9 g/dL (2.4-3.5); Glucose 125 mg/dL (83-110); Potassium 4.1 mmol/L (3.5-5.1); Protein, Total 6.3 g/dL (5.8-8.1); Sodium 133 mmol/L (136-145)
[2023-09-07] MEDS: traMADol HCl 50 MG TAB PO PRN (11:37)
[2023-09-07] MEDS: Atorvastatin Calcium 20 MG TAB PO SCH (14:49)
[2023-09-07] MEDS: PARoxetine 20 MG TAB PO SCH (14:49)
[2023-09-07] MEDS: Sodium Chloride 0.9% 1,000 ML IV SCH (17:01)
[2023-09-07] MEDS: Acetaminophen 650 MG Suppository PR PRN (21:05)
[2023-09-07] MEDS: Amitriptyline HCl 25 MG TAB PO PRN (21:38)
[2023-09-08 06:36] LABS: ALT (SGPT) 405 U/L (8-55); AST (SGOT) 176 U/L (5-34); Albumin 3.3 g/dL (3.4-4.8); Alkaline Phosphatase 177 U/L (40-110); Anion Gap 11 mmol/L (10-20); BUN (Urea Nitrogen) 11 mg/dL (9.8-20.1); Bilirubin, Total 1.3 mg/dL (0.2-1.2); Calc. Creatinine Clearance 70 mL/min (70-130); Calcium 9.1 mg/dL (7.8-10.44); Carbon Dioxide 26 mmol/L (23-31); Chloride 106 mmol/L (98-107); Estimated GFR 79; Globulin 2.8 g/dL (2.4-3.5); Glucose 86 mg/dL (83-110); Potassium 3.7 mmol/L (3.5-5.1); Protein, Total 6.1 g/dL (5.8-8.1); Sodium 139 mmol/L (136-145)
[2023-09-08] MEDS ORDERED: Bupivacaine 0.25% HCL 30 ML VIAL ONE (06:43)
[2023-09-08] MEDS ORDERED: EPINEPHrine 1 MG/ML VIAL ONE (06:43)
[2023-09-08] MEDS ORDERED: fentaNYL PF 100 MCG/2 ML SYRINGE ONE ×2 (06:50→08:59)
[2023-09-08] MEDS ORDERED: PROPOFOL 20 ML ONE (06:50)
[2023-09-08] MEDS ORDERED: Lidocaine 2% PF 5 ML VIAL ONE (06:54)
[2023-09-08] MEDS ORDERED: SUGAMMADEX SODIUM 200 MG/2 ML VIAL ONE (08:04)
[2023-09-08] MEDS ORDERED: Glycopyrrolate 0.2 MG/ML 5 ML SYRINGE ONE (08:19)
[2023-09-08] MEDS ORDERED: Esmolol 100 MG/10 ML VIAL ONE (08:31)
[2023-09-08] MEDS ORDERED: Atorvastatin Calcium 20 MG TAB PO SCH (09:00)
[2023-09-08] MEDS ORDERED: Ketorolac Tromethamine 30 MG (1 mL) VIAL ONE (09:15)
[2023-09-08] MEDS ORDERED: fentaNYL 50 mcg/mL 1 mL Vial ONE (09:33)
[2023-09-08] MEDS: PARoxetine 20 MG TAB PO SCH (10:00)
[2023-09-08] MEDS: Morphine 2 MG/ML VIAL SLOW IVP SCH (17:17)
[2023-09-08] MEDS: Melatonin 3 MG TAB PO PRN (20:41)
[2023-09-09 05:38] LABS: Hematocrit 36.8 % (36.0-47.0); Hemoglobin 12.3 g/dL (12.0-16.0); Mean Corpuscular HGB CONC 33.4 g/dL (32.0-36.0); Mean Corpuscular Hemoglobin 31.2 pg (27.0-31.0); Mean Corpuscular Volume 93.4 fL (78.0-98.0); Mean Platelet Volume 9.9 fL (7.4-10.4); Platelet Count 285 10x3/uL (130-400); RBC Distribution Width 12.2 % (11.5-14.5); Red Blood Cell (RBC) Count 3.94 mill/uL (4.20-5.40)
[2023-09-09 06:38] LABS: ALT (SGPT) 306 U/L (8-55); AST (SGOT) 86 U/L (5-34); Albumin 3.5 g/dL (3.4-4.8); Alkaline Phosphatase 197 U/L (40-110); Anion Gap 14 mmol/L (10-20); BUN (Urea Nitrogen) 11 mg/dL (9.8-20.1); Bilirubin, Total 0.8 mg/dL (0.2-1.2); Calc. Creatinine Clearance 65 mL/min (70-130); Calcium 9.6 mg/dL (7.8-10.44); Carbon Dioxide 26 mmol/L (23-31); Chloride 101 mmol/L (98-107); Estimated GFR 72; Glucose 99 mg/dL (83-110); Potassium 3.8 mmol/L (3.5-5.1); Protein, Total 6.5 g/dL (5.8-8.1); Sodium 137 mmol/L (136-145)
[2023-09-09 07:35] VITALS: BP 167/66; TEMP 97.7
== END 2023-09-09 11:10 | disposition home or self-care (01) | DRG 418 ==
LOC: ERS 19:23 → SURG A 23:06 → OBSVTOIN 09-07 12:08
PROVIDERS: ADMIT Student in an Organized Health Care Education/Training Program; ATTEND Internal Medicine
PROC: 0FC98ZZ Extirpation of Matter from Common Bile Duct, Via Natural or Artificial Opening Endoscopic (ICD-10-PCS; principal; 2023-09-06)
PROC: 0FT44ZZ Resection of Gallbladder, Percutaneous Endoscopic Approach (ICD-10-PCS; 2023-09-08)
DX: K80.50 Calculus of bile duct without cholangitis or cholecystitis without obstruction (principal); E87.1 Hypo-osmolality and hyponatremia; N39.0 Urinary tract infection, site not specified; J44.9 Chronic obstructive pulmonary disease, unspecified; Z79.899 Other long term (current) drug therapy; E78.5 Hyperlipidemia, unspecified; Z90.49 Acquired absence of other specified parts of digestive tract; Z90.710 Acquired absence of both cervix and uterus; F41.9 Anxiety disorder, unspecified; F17.210 Nicotine dependence, cigarettes, uncomplicated
CPT/HCPCS: 36415; 74177; 74330; 80053; 81001; 83690; 84484; 85025; 85027; 87086; 88304; 93005; 93880; 96375; 96376; C1889; G0378; J0171; J0665; J0696; J1100; J1885; J2001; J2270; J2272; J2371; J2405; J2704; J3010; J3490; J7050; Q9967

== ENCOUNTER 2023-09-12 20:46 | Emergency (ER) | payer MEDICARE ==
[2023-09-12 21:37] LABS: #Basophils 0.04 10x3/uL (0.0-0.2); %Basophils 0.3 % (0.0-1.0); %Eosinophils 3.8 % (0.0-10.0); %Monocytes 8.2 % (0.0-10.0); %Neutrophils 79.2 % (42.0-75.0); Hematocrit 40.2 % (36.0-47.0); Hemoglobin 13.7 g/dL (12.0-16.0); Mean Corpuscular HGB CONC 34.1 g/dL (32.0-36.0); Mean Corpuscular Hemoglobin 31.2 pg (27.0-31.0); Mean Corpuscular Volume 91.6 fL (78.0-98.0); Mean Platelet Volume 9.5 fL (7.4-10.4); Platelet Count 312 10x3/uL (130-400); RBC Distribution Width 12.2 % (11.5-14.5); Red Blood Cell (RBC) Count 4.39 mill/uL (4.20-5.40)
[2023-09-12 21:59] LABS: ALT (SGPT) 93 U/L (8-55); AST (SGOT) 24 U/L (5-34); Albumin 3.5 g/dL (3.4-4.8); Alkaline Phosphatase 179 U/L (40-110); Anion Gap 15 mmol/L (10-20); BUN (Urea Nitrogen) 12 mg/dL (9.8-20.1); Bilirubin, Total 0.8 mg/dL (0.2-1.2); Calc. Creatinine Clearance 0 mL/min (70-130); Calcium 9.2 mg/dL (7.8-10.44); Carbon Dioxide 23 mmol/L (23-31); Chloride 102 mmol/L (98-107); Estimated GFR 70; Glucose 121 mg/dL (83-110); Lipase 9 U/L (8-78); Potassium 3.8 mmol/L (3.5-5.1); Protein, Total 6.5 g/dL (5.8-8.1); Sodium 136 mmol/L (136-145)
[2023-09-12 22:01] LABS: Troponin I Less than 0.010 ng/mL (< 0.028)
[2023-09-12] MEDS ORDERED: Piperacillin/Tazobactam 3.375 GM VIAL ONE (22:56)
[2023-09-12] MEDS ORDERED: Ondansetron PF 4 MG/2 ML Vial ONE (22:56)
[2023-09-12] MEDS ORDERED: Morphine 4 MG/ML VIAL ONE (22:56)
[2023-09-12] MEDS ORDERED: Sodium Chloride 0.9% 100 ML ONE (22:57)
[2023-09-13 02:50] LABS: Bacteria/HPF None Seen HPF (None Seen); Bilirubin Negative (Negative); Blood, Urine Negative (Negative); CAUTI Indications for Culture < 2yrs of age; Clarity Clear (Clear); Glucose, Urine (Dipstick) Normal (Negative); Ketone, Urine Negative (Negative); Leukocyte Negative Leu/uL (Negative); Nitrite Negative (Negative); Protein, Urine (Dipstick) Negative (Neg-Trace); RBC/HPF 0-3 HPF (0-3); Specific Gravity, Urine 1.026 (1.002-1.036); Squamous Epithelial 0-3 HPF (0-3); Urobilinogen Normal mg/dL (Less than 2); pH, Urine 5.5 (5.0-9.0)
[2023-09-13 02:54] LABS: Urine Culture Reflex Yes Yes
[2023-09-13 03:07] LABS: Influenza A by NAA Not Detected (NotDetected); Influenza B by NAA Not Detected (NotDetected); SARS-CoV-2 NAA Rapid Test Not Detected (NotDetected)
== END 2023-09-13 04:10 | disposition home or self-care (01) ==
LOC: ERS 20:46
DX: K52.9 Noninfective gastroenteritis and colitis, unspecified (principal); E78.5 Hyperlipidemia, unspecified; F17.210 Nicotine dependence, cigarettes, uncomplicated
CPT/HCPCS: 0240U; 74177; 80053; 81001; 83605; 83690; 84484; 85025; 87040; 87086; 93005; J2270; J2405; J2543; J3490; Q9967; 36415; 96361; 96374; 96375